=== PATIENT | male | born 1970 | race Caucasian/White ===

== ENCOUNTER 2022-03-02 04:03 | Outpatient (CLI) | payer OTHER, SELFPAY ==
[2022-03-02] MEDS: Inhaler, Assist Device 1 EACH MC (09:13)
[2022-03-02] MEDS: Albuterol HFA 18 GM 200 PUFF INH IH (09:13)
--- NOTE | 2022-03-03 15:56 | W.PFT ---
Date of service: 03/03/22 Time of Service: 08:01 Pulmonary Function Test Result Requesting Provider Olivia Jo Indications: Dyspnea Interpretation Spirometry: There is no airflow limitation. There is no significant bronchodilator response. Lung Volumes: Lung volumes are normal. Diffusion Capacity: Normal diffusion. Airway Pressure: Normal airways resistance. Impression Normal pulmonary function testing Clinical Correlation therefore is recommended.
== END 2022-03-02 04:04 | disposition home or self-care (01) ==
LOC: RT 04:03
PROVIDERS: PCP Family Medicine
DX: R06.09 Other forms of dyspnea (principal); R05.8 Other specified cough; Z87.891 Personal history of nicotine dependence
CPT/HCPCS: 94060; 94726; 94729

== ENCOUNTER 2022-04-11 15:32 | Outpatient (CLI) | payer OTHER, SELFPAY ==
--- NOTE | 2022-04-11 14:30 | DI.RAD_ITS ---
Exam(s) XR SHOULDER LT COMPLETE 2+V EXAM: XR SHOULDER LT COMPLETE 2+V CLINICAL HISTORY: L shoulder pain. TECHNIQUE: 2D digital imaging was performed. COMPARISON: No exams were available for comparison FINDINGS: Two views: No evidence of fracture or dislocation nor abnormal soft tissue calcifications. Small benign cyst no edwardo in the medial half of the humeral head measuring 9 x 8 millimeters. No narrowing of the glenohum eral space. No osteophytes. Subacromial space is not diminished. Mild degenerative changes AC join t IMPRESSION: Minimal findings as described above. DATA REPOSITORY: RADIATION DOSE DELIVERED:
== END 2022-04-11 15:33 | disposition home or self-care (01) ==
LOC: DIORS 15:32
PROVIDERS: PCP Family Medicine; Referring Provider Family Medicine; Visit Provider Physician Assistant
DX: M25.512 Pain in left shoulder (principal); M25.812 Other specified joint disorders, left shoulder; M19.012 Primary osteoarthritis, left shoulder
CPT/HCPCS: 73030

== ENCOUNTER 2022-05-19 07:47 | Day surgery (SDC) | payer OTHER, SELFPAY ==
--- NOTE | 2022-05-18 19:01 | ANES.PREOP_ITS ---
General Info Date of Service Date Performed: 05/19/22 Height: 6 ft 1 in Weight: 104.33 kg Body Mass Index (BMI): 30.3 Surgical Procedure: Operation Date: 05/19/22 07:40 Proposed Procedure Side Surgeon p Shoulder Rotator Cuff Arthroscopic w/Extensive Debridement, Biceps Tenodesis, Subacromial Decompression Left Topher Mas MD Meds Allergies and Home Medications Allergies Allergy/AdvReac Type Severity Reaction Status Date / Time No Known Allergies Allergy Verified 05/19/22 08:43 Home Medication Medication Instructions Recorded baclofen 10 mg tablet 10 mg PO HS 03/22/22 diclofenac sodium 1 % topical gel 2 g topical QID 03/22/22 fluticasone propionate 50 1 spray intranasal DAILY 03/22/22 mcg/actuation nasal spray,suspension pantoprazole 40 mg tablet,delayed 40 mg PO DAILY 03/22/22 release testosterone cypionate 200 mg/mL 200 mg IM Q2W 03/22/22 intramuscular oil (Depo-Testosterone) aspirin 81 mg tablet,delayed 81 mg PO DAILY prevent blood clot 05/19/22 release 7 days #7 tabs naproxen 250 mg tablet 250 - 500 mg PO BID PRN #40 tabs 05/19/22 oxycodone 5 mg tablet 5 - 10 mg PO Q4H PRN moderate to 05/19/22 severe pain #18 tabs Current Visit Medications: Current Medications Generic Name Dose Route Start Last Admin Trade Name Freq PRN Reason Stop Dose Admin Cefazolin Sodium 3,000 mg/ 100 mls @ 200 mls/hr 05/19/22 06:00 Sodium Chloride IVPB 05/19/22 16:00 PREOP NICKI Ringer's Solution 1,000 mls @ 30 mls/hr 05/19/22 06:00 IV 05/19/22 16:00 [facility]ION [facility] IV Miscellaneous Supplies 1 each 05/19/22 06:00 Iv Access IV 05/19/22 23:59 DIRECTED NICKI Sodium Chloride 0 ml 05/19/22 06:00 Normal Saline Flush 10 Ml Syr IV 05/19/22 23:59 PRN PRN Sodium Chloride 0 ml 05/19/22 06:00 Normal Saline 10 Ml Vial IJ 05/19/22 23:59 DIRECTED PRN Sterile Water 0 ml 05/19/22 06:00 Water,Injection,Sterile 10 Ml Vial IJ 05/19/22 23:59 DIRECTED PRN PFSH Active Problems Active Problems: Problem Status Onset Code Left rotator cuff tear M75.102 Tendinitis of long head of biceps brachii of left shoulder M75.22 Medical History Medical History Hx of gastroesophageal reflux (GERD) Hx of radiculopathy lumbar; PT 10/2020 Surgical History Surgical History History of cholecystectomy Hx of anterior cruciate ligament surgery bilateral Hx of appendectomy Tobacco Smoking/Tobacco Use Status: Former Tobacco Use Alcohol Alcohol Intake: current Alcohol intake frequency: holidays/special occasions only Substance Use Substance use: Socially Substance use type: does not use Vital Signs and Lab Results Vital Signs Most Recent Vital Signs in EMR: Temp Pulse Resp BP Pulse Ox 36.2 C L 70 16 121/86 98 05/19/22 08:47 05/19/22 08:47 05/19/22 08:47 05/19/22 08:47 05/19/22 08:47 Lab Results Blood Type / Crossmatch: No Data to Display Complete Blood Count: No Data to Display Complete Metabolic Panel: No Data to Display Liver Function Panel: No Data to Display Coagulation Panel: No Data to Display Cardiac Panel: No Data to Display Arterial Blood Gas: No Data to Display Venous Blood Gas: No Data to Display Pancreas Panel: No Data to Display Thyroid Panel: 2 No Data to Display Infectious Disease: No Data to Display Blood Cultures: No Data to Display Toxicology Panel: No Data to Display Imaging and Studies Imaging and Studies Study information below may be from another EMR and interpreted by another provider. Please see original notes in EMR for more complete details. Pulmonary Function Summary: 03/02: normal. Anesthesia Assessment and Plan Anesthesia History Personal History: No History of Anesthesia Complications Family History: No Family History of Anesthesia Complications Exercise Tolerance Exercise Tolerance: Metabolic Equivalents>4 Cardiac & Pulmonary Exam Cardiac Exam: Normal S1/S2 Heart Sounds Pulmonary Exam: Clear Bilateral Breath Sounds Implantable Cardiac Device Does patient have a Pacemaker or an ICD?: No Airway Exam Known Difficult Airway: No Mallampati Class: 2 Mouth Opening: Normal (> 3cm) Thyromental Distance: Greater than 3 cm Facial Hair: Full [place] Neck Range of Motion: Full ROM Neck Circumference: Normal Teeth Condition: Normal Dentition ASA Classification ASA Score: ASA 2 Emergency Case?: No NPO Status NPO Status: NPO Clears >2 hours, Solids >8 hours Anesthesia Plan Resuscitation Status: Full Code Anesthesia Technique: General Anesthesia Airway Planned: Endotracheal Tube Pain Management: Surgeon and patient request nerve block Monitors Used: Standard Monitors Preoperative Comments:: 52 yo male [place] pt with left rotator cuff tear and bicep tendinitis for shoulder scope. Sig PMHx: GERD (pantoprazole), radiculopathy (PT, baclofen), former smoker, occ EtOH, numbness along both pinky fingers, TBI. Discussed risks, benefits, and alternatives (where appropriate) of regional anesthesia and GA. Discussed that given his numbness that there is a real posibility that it could get worse. typical risk for permanent nerve injury is 1:5000, and I am unsure of what it would be in him given his preexisting numbness. He understands the risk and would like to proceed with regional anesthesia for his shoulder. Plan GAETT with brachial plexus block.
[2022-05-19] VITALS (9 sets, daily range): BP systolic 99–138; BP diastolic 58–93; PULSE 60–74; RESP 10–16; TEMP 36.2–37.2; O2SAT 95–98; BMI 30.3
[2022-05-19] MEDS: Lactated Ringers 1,000 ML 30 ML IV (09:01)
--- NOTE | 2022-05-19 11:05 | W.ANESNERVE ---
Nerve Block Single Injection Procedure Date and Time Date Performed: 05/19/22 Procedure Start: 10:50 Location Where Procedure Performed Procedure Location: Day Surgery Unit Reason Performed: Postoperative Analgesia Requesting Provider: Eb Ferrara Timeout Performed Timeout Performed: Yes Monitoring Used ECG, Blood Pressure, SpO2 and ETCO2 Sterility Sterility: Hand Hygiene, Surgical Cap, Surgical Mask, Sterile Gloves and Chlorhexidine Sedation Given During Procedure Sedation Given (Indicate Dose Given): No Sedation given Patient Mental Status Patient Mental Status: Awake Nerve Block 1st Nerve Block: Laterality: Left Block Type: Interscalene Needle / Catheter Used: 100mm SonoPlex II Local Anesthetic Bolus (Indicate Dose Given): Lidocaine used for local infiltration of skin and Bupivacaine 0.5% Dose:: 15 mL Additives (Indicate Dose Given): Precedex Dose:: 50 mcg Ultrasound: Sterile probe cover and gel used Ultrasound Image Saved?: Yes Nerve Stimulator: Supplement to Ultrasound use and No twitch or parasthesia noted < 0.5 mA Paresthesia: None Procedure Tolerated: No Complications Procedure Outcome: Successful Performed By: Eb Ferrara
[2022-05-19] MEDS: ceFAZolin 3,000 MG in Normal Saline 100 ML 200 MG IVPB (11:50)
[2022-05-19] MEDS: EPINEPHrine 30 MG/30 ML VIAL (13:34)
--- NOTE | 2022-05-19 14:04 | W.PM.DSUDISC ---
Date of service: 05/19/22 Time of Service: 13:00 Discharge Plan Disposition Patient Disposition: Home Condition: Stable Discharge Details Attending Provider: Topher Mas Primary Care Provider: Aurelio Woodward Home Meds and New Rx's Prescriptions: New naproxen 250 mg tablet 250 - 500 mg PO BID PRNQty: 40 0RF Rx Instructions: take with a meal aspirin 81 mg tablet,delayed release (DR/EC) 81 mg PO DAILY 7 Days Qty: 7 0RF oxycodone 5 mg tablet 5 - 10 mg PO Q4H MDD 30 mg PRN (Reason: moderate to severe pain) Qty: 18 0RF Continued baclofen 10 mg tablet 10 mg PO HS diclofenac sodium 1 % gel 2 g topical QID Rx Instructions: apply to single elbow, wrist or hand; for hand includes palm/fingers/back of hand fluticasone propionate 50 mcg/actuation spray,suspension 1 spray intranasal DAILY Rx Instructions: administer into each nostril pantoprazole 40 mg tablet,delayed release (DR/EC) 40 mg PO DAILY testosterone cypionate [Depo-Testosterone] 200 mg/mL oil 200 mg IM Q OTHER DAY Discharge Instructions Additional Instructions: Surgery: Left shoulder arthroscopy with rotator cuff repair (subscapularis only), biceps tenodesis, extensive debridement, and subacromial decompression. Activity: For 6 weeks, you should keep your arm at your side in a neutral position at all times except for physical therapy. Do not try to lift or raise your arm using your own muscles. You should use the sling whenever you are out of the house. You may have to adjust the abduction pillow or remove it for comfort. At home it is best to remove the sling and rest the arm on a pillow at your side or support the operative side with your other hand. You may allow the arm to dangle at your side. A physical therapy prescription will be provided separately in the office at follow-up. Prescriptions: Aspirin 81 mg take 1 daily to prevent a blood clot for 7 days Naproxen 250 mg take 1-2 every 12 hours with a meal as needed for moderate pain Oxycodone 5 mg take 1-2 every 4-6 hours as needed for severe pain You may use [id number] Tylenol (acetaminophen) as needed for mild pain. These pain medications may be taken all at once or in different combinations as needed. Also, recommend Colace (docusate) as a stool softener as surgery and pain medicine cause constipation. You may try [id number] diphenhydramine (Benadryl) 25-50 mg nightly as a sleep aid Dressings: Remove shoulder bandage after 3 days. Leave the sticky Steri-Strips in place until they fall off or remove them after you shower. Cover the incisions with Band-Aids or leave them open to air. You may shower after 5 days. Follow-up: 10-[address] Mas You may take off the leg compression stockings this evening at home. You may also leave them on a few days longer if you have a history of leg swelling or edema. Let us know right away if you develop any redness, drainage, fevers, chest pain, or trouble breathing. Do not drink alcohol or drive for at least 24 hours after anesthesia. Please call the office during business hours with any questions or concerns. Discharge Orders Discharge Orders: Discharge Order (Routine); Ordered 05/19/22 Ordered By: Topher Mas DS: Diagnosis Discharge Diagnosis (1) Left rotator cuff tear: Status: Acute (2) Tendinitis of long head of biceps brachii of left shoulder: Status: Acute
--- NOTE | 2022-05-19 14:08 | ROE_ITS ---
Date of service: 05/19/22 Time of Service: 12:00 Operative Note Operative Note DATE OF PROCEDURE: 05/19/22 PRE-OP DIAGNOSIS: Left: 1. Rotator cuff tear 2. LHB tendinopathy 3. Bursitis POST-OP DIAGNOSIS: same PROCEDURE: Left: 1. Rotator cuff repair, CPT# 44977. This involved suture repair of the subscapularis 2. Arthroscopic biceps tenodesis, CPT# 72989. This involved arthroscopically suturing and reattaching the long head of the biceps tendon to the proximal humerus at the superior margin of the bicipital groove with a screw at the correct tension. 3. Extensive debridement, CPT# 54192. This involved using arthroscopic hand instruments, power instruments, and radiofrequency instruments to release the long head of the biceps tendon and debride areas of labral tearing, synovitis, unstable SLAP tear, and glenoid chondromalacia working within the glenohumeral joint anteriorly, superiorly and posteriorly. 4. Subacromial decompression with partial acromioplasty, CPT# 38485. This involved using arthroscopic power instruments and a radiofrequency wand to complete a bursectomy and smooth the undersurface of the acromion. The nursing assistant was medically required in order to help assist in techniques above, which require positioning the arm, holding the arthroscope, and manipulating multiple instruments and sutures at the same time. This cannot be done without the help of an experienced nursing assistant. SURGEON: Topher Mas [facility]: [facility] ANESTHESIA TYPE: General LMA/ETT and Primary Nerve Block Refer to Anesthesia Record ESTIMATED BLOOD LOSS: 10 PATHOLOGY: none sent COMPLICATIONS: None Patient was transported to: PACU Patient's condition: stable Implants: Arthrex: 4.75mm SwiveLocks x 1 Indications: The patient was diagnosed with the above conditions and appropriately indicated for surgical intervention. Please see complete medical record for details. Findings: Exam under anesthesia: Full range of motion, no instability Glenohumeral joint: Significant synovitis. Moderate glenohumeral labral de generative changes anterior and posterior labral fraying, minor detachment, cartilage wear adjacent anterior posterior labral lesions. Unstable bucket- handle type SLAP tear. Moderate biceps injection. Moderate mid substance subscapularis degenerative type tissue and fraying. Mild partial articular rotator cuff tearing with moderate superior capsular injury as well. Subacromial space: Moderate bursitis. Minimal acromial bone spur. Localized rotator cuff thinning and significant injection, but no structural bursal tear. Procedure Description: In the operating room, general anesthesia was induced. Bilateral shoulders were examined. The patient was positioned in the beachchair position. All bony prominences were well-padded. Preoperative antibiotics were administered. The shoulder was prepped and draped in the usual sterile fashion. The correct patient, procedure, and side of the procedure were all verified prior to incision. Starting through the posterior portal a standard complete diagnostic arthroscopy was performed of the glenohumeral joint including inspection of the long head of the biceps, anterior and superior labrum, subscapularis tendon, supraspinatus and infraspinatus tendons, and axillary recess. The glenoid and humeral head cartilage as well as the posterior labrum were inspected from an anterior viewing portal. Significant findings and interventions noted above. An all-arthroscopic suprapectoral biceps tenodesis was performed through an anterior portal using a Loop N Tack method with a SutureTape FiberLink cinched around and through the tendon. The biceps was tenotomized from the labrum and fixated with a suture anchor at the superior margin of the bicipital groove. The knotless repair suture was then passed around the biceps and shoulder back through the anchor and an additional security to the tenodesis. Using a single portal technique, a 90 degree lasso was used to shuttle a suture tape around the subscapularis and BirdBeak used to withdraw the suture in in a horizontal mattress configuration outside the joint securely fixated with SMC arthroscopic knot. The remaining frayed edges were debrided to stable margin. Starting through the posterior portal, the arthroscope was directed into the subacromial space. A lateral 50 yard line lateral portal was created. A combination of power instruments and a radiofrequency ablator were used to debride bursitis anteriorly, posteriorly, and laterally as well as expose, smooth, and abrade the undersurface of the acromion as bone marrow stimulation for this partial rotator cuff tear. The coracoacromial ligament was minimally released. The bursectomy was completed viewing laterally and working from posteriorly and the rotator cuff was thoroughly inspected with findings noted above. The shoulder was drained of arthroscopic fluid. All portal sites were copiously irrigated. These incisions were closed using 3-0 Monocryl in a buried fashion and then covered with Mastisol, Steri-Strips, Xeroform, dry gauze, and ABDs. The dressings were covered and secured with Medipore tape. The operative extremity was placed into a sling for immobilization. The patient awoke from anesthesia without complication and was transferred to the recovery room in a stable condition.
--- NOTE | 2022-05-19 14:30 | W.ANESPOSTOP ---
Postoperative Evaluation Date, Time and Location Date Performed: 05/19/22 Time Performed: 14:30 Patient Location: PACU Vital Signs Most Recent Imported Vital Signs: Most Recent Vital Signs Temp Pulse Resp BP Pulse Ox 36.5 C 70 11 L 104/61 96 05/19/22 14:13 05/19/22 14:13 05/19/22 14:13 05/19/22 14:13 05/19/22 14:13 Pain Score Most Recent Pain Score: Most Recent Pain Score Pain Level 0 05/19/22 14:13 Assessment Mental Status: Awake (Alert & Oriented to Patient Baseline) Airway and Respiratory Function: Patent airway with normal (patient baseline) respiratory exam Cardiovascular Function: Hemodynamically Stable Hydration Status: Adequately Hydrated Nausea & Vomiting: No Nausea or Vomiting Pain: Pain is tolerable per patient Peripheral Nerve Block: Regional nerve block not resolved at time of post operative discharge
== END 2022-05-19 15:30 | disposition home or self-care (01) ==
PROVIDERS: PCP Family Medicine; Visit Provider Student in an Organized Health Care Education/Training Program
PROC: (CPT 29827; principal; 2022-05-19 09:30)
DX: M75.102 Unspecified rotator cuff tear or rupture of left shoulder, not specified as traumatic (principal); M75.22 Bicipital tendinitis, left shoulder; M75.52 Bursitis of left shoulder
CPT/HCPCS: 29827; 29828; 29826; 29823; 76942; J0690; J1100; J1885; J2250; J2370; J2405; J2704